=== PATIENT | male | born 1995 | race Caucasian/White ===

== ENCOUNTER → 2021-12-17 14:36 | Outpatient (CLI) | payer OTHER, SELFPAY ==
--- NOTE | 2021-12-17 14:37 | CT_ITS ---
FINAL REPORT TECHNIQUE: Axial CT images were performed through the head. Coronal reformatted images were submitted. This study was performed with techniques to keep radiation doses as low as reasonably achievable (ALARA). Individualized dose reduction techniques using automated exposure control or adjustment of mA and/or kV according to the patient's size were employed. CLINICAL HISTORY: migraines frontal lobe FINDINGS: The ventricles are normal in size. There is no evidence of hemorrhage. There is no mass or edema identified. There is no abnormal extra-axial fluid seen. There is mild mucoperiosteal thickening of the frontal sinuses and ethmoid air cells. Remaining paranasal sinuses are clear. There are no air-fluid levels. IMPRESSION: Mild mucoperiosteal thickening of the frontal sinuses and ethmoid air cells consistent with chronic sinusitis. No acute intracranial abnormality. Reviewed, Interpreted and Dictated by Guillaume Ward MD Transcribed by Ekta Wang Authenticated by Guillaume Ward MD on 12/17/2021 04:23:46 PM [facility]
== END ==
PROVIDERS: PCP Nurse Practitioner Family; Visit Provider Nurse Practitioner Family
DX: G43.909 Migraine, unspecified, not intractable, without status migrainosus (principal)
CPT/HCPCS: 70450

== ENCOUNTER 2022-08-03 15:36 | Emergency (ER) | payer OTHER, SELFPAY ==
[2022-08-03 16:09] VITALS: BP 131/87; PULSE 99; RESP 18; TEMP 37.6; O2SAT 99; BMI 27.1
--- NOTE | 2022-08-03 16:16 | EXP.UTC ---
Discharge Plan Disposition Patient Disposition: Home, Self-Care Condition: Good Prescriptions Prescriptions: New benzonatate [benzonatate] 100 mg capsule 100 mg PO TIDP PRN (Reason: Cough) Qty: 30 0RF ondansetron 4 mg Tablet,Disintegrating 4 mg PO Q8H PRN (Reason: Nausea) Qty: 20 0RF No Action ubrogepant [Ubrelvy] 100 mg tablet 0RF buspirone 5 mg tablet 5 mg PO BID Qty: 60 1RF Trintellix 20 mg tablet 20 mg PO DAILY Qty: 30 1RF Referrals Follow up/Referrals: Matt Miller APRN [Primary Care Provider] - See instructions Activity Restrictions/Add. Instructions Additional Instructions/Restrictions: Drink plenty of fluids. Take tylenol or ibuprofen for pain or fever. Take the medications as directed. Follow up with your regular doctor. GO TO THE ER FOR ANY WORSENING SYMPTOMS Quarantine until you know the results of your covid-19 test. Notify your school or workplace of your results and follow their instructions regarding return to work/school. Clinical Impressions Clinical Impression: Acute viral syndrome, Close exposure to COVID-19 virus Instructions Patient Instructions: Coronavirus Disease 2019, Preventing the Spread of Coronavirus Discharge Instructions Discharge ED Provider: Tony Espinal [facility] General Stated complaint: exposed,ARROYO Body Aches,runny nose Mode of Arrival: Ambulatory Source of Information: Patient Limitations: No Limitations Time Seen by Provider: 08/03/22 16:16 Description of Symptoms (Recalled from Triage Doc. by RN): pt comes in for covid test. symptoms began today and include headache, body aches, runny nose, chills, weakness. HEENT Symptoms (Recalled from RN notes): Yes Resp Symptoms (Recalled from RN notes): Yes Skin Symptoms (Recalled from RN notes): No MS Symptoms (Recalled from RN notes): No Functional Status (Recalled from RN notes): n/a History of Present Illness Provider Complaint: He has had body aches, malaise and a dry cough for the past 1 day. Related Data Previous Rx's Medication Instructions Recorded buspirone 5 mg tablet 5 mg PO BID #60 tabs 06/24/22 vortioxetine 20 mg tablet 20 mg PO DAILY #30 tabs 06/24/22 (Trintellix) benzonatate 100 mg capsule 100 mg PO TIDP PRN Cough #30 caps 08/03/22 ondansetron 4 mg disintegrating 4 mg PO Q8H PRN Nausea #20 tabs 08/03/22 tablet Allergies Allergy/AdvReac Type Severity Reaction Status Date / Time Sulfa (Sulfonamide Allergy Verified 08/03/22 16:14 Antibiotics) Worker's Comp Is this a Worker's Comp case?: No PFSH PFSH Social History Smoking Status: Current every day smoker tobacco type: cigarettes packs per day: 1 alcohol intake: never substance use type: marijuana current occupational status: unemployed Travel in the last 8 weeks: None number of children: 0 ROS Obtained: Yes All systems reviewed & no additional complaints except as documented Constitutional Constitutional: Reports system reviewed and no additional complaints, except as documented, Denies chills and Denies fever(s) Eyes Eyes: Denies eye discharge ENT Ears, Nose, Mouth, and Throat: Denies dysphagia, Denies sore throat and Denies throat swelling Cardiovascular Cardiovascular: Denies chest pain and Denies dyspnea Respiratory Respiratory: Denies chest congestion, Denies cough and Denies dyspnea Gastrointestinal Gastrointestingal: Denies abdominal pain, constipation, diarrhea, dysphagia, nausea or vomiting Musculoskeletal Musculoskeletal: Denies arthralgias Integumentary/Breasts Skin/Breast: Denies rash Neurologic Neurologic: Denies paresthesias Allergic/Immunologic Allergic/Immunologic: Denies throat swelling Physical Exam General General appearance: alert and in no apparent distress Head Head exam: atraumatic, normocephalic and normal inspection Eye Eye exam: Present normal appearance, PERRL and EOMI ENT ENT exam: Prese
[2022-08-03 16:40] LABS: UTC Strep Screen (Rapid) Negative (Negative)
[2022-08-03 16:56] VITALS: BP 131/87; PULSE 99; RESP 18; TEMP 37.6
== END 2022-08-03 17:02 | disposition home or self-care (01) ==
PROVIDERS: Emergency Provider Nurse Practitioner Family; PCP Nurse Practitioner Family
DX: U07.1 COVID-19 (principal)
CPT/HCPCS: 87880; 99212; C9803; G0463; U0003; U0005

== ENCOUNTER 2023-07-22 09:34 | Emergency (ER) | payer OTHER, SELFPAY ==
[2023-07-22 10:10] VITALS: BP 147/84; PULSE 64; RESP 18; TEMP 37.3; O2SAT 96; BMI 29.8
--- NOTE | 2023-07-22 10:50 | EXP.UTC ---
Discharge Plan Disposition Patient Disposition: Home, Self-Care Condition: Good Prescriptions Prescriptions: No Action ubrogepant [Ubrelvy] 100 mg tablet 0RF buspirone 5 mg tablet 5 mg PO BID Qty: 60 1RF Trintellix 20 mg tablet 20 mg PO DAILY Qty: 30 1RF benzonatate [benzonatate] 100 mg capsule 100 mg PO TIDP PRN (Reason: Cough) Qty: 30 0RF ondansetron 4 mg Tablet,Disintegrating 4 mg PO Q8H PRN (Reason: Nausea) Qty: 20 0RF Referrals Follow up/Referrals: Matt Miller APRN [Primary Care Provider] - See instructions Activity Restrictions/Add. Instructions Additional Instructions/Restrictions: *Monitor Temp, Over the counter Motrin or Tylenol as directed/as needed Tylenol every 4 hours and Motrin every 6 hours (as long as your family doctor has told you that you can take it) for fever or pain. and straight to ER if unable to lower temp less than 101.0 after medication given *Warm salt water gargles may help to soothe the throat *Throat Lozenges? *Warm fluids like tea with honey may help to soothe the throat? *Sleep elevated *Humidifier/Vaporizer Follow up IMMEDIATELY for new or worsening symptoms or no Noticeable improvement over the next 48-72 hours. 911 for difficulty breathing or swallowing You were tested for today for COVID19 your test result should be back in the next 24-48 hours, you may check your results on the [facility] [employer] [facility] Clinical Impressions Clinical Impression: Acute viral syndrome Stand Alone Forms Stand Alone Forms: Work/School Release Instructions Patient Instructions: Sore Throat, DI for Fever (Symptom) -- Adult, DI for Nasal Congestion Discharge ED Provider: Nyasia Webber [facility] – [place] HPI General Stated complaint: runny nose, cough, chills,headache Mode of Arrival: Ambulatory Source of Information: Patient Limitations: No Limitations Time Seen by Provider: 07/22/23 10:50 Description of Symptoms (Recalled from Triage Doc. by RN): PATIENT C/O HEADACHE, BODY ACHES, RUNNY NOSE AND COUGH SINCE LAST NIGHT HEENT Symptoms (Recalled from RN notes): Yes Resp Symptoms (Recalled from RN notes): Yes Skin Symptoms (Recalled from RN notes): No MS Symptoms (Recalled from RN notes): No Functional Status (Recalled from RN notes): WNL History of Present Illness Provider Complaint: Patient states that he started feeling bad last night having cough, body aches, chills and headache State that he feels like he did before when he had COVID and wanted to get tested Related Data Previous Rx's Medication Instructions Recorded benzonatate 100 mg capsule 100 mg PO TIDP PRN Cough #30 caps 08/03/22 ondansetron 4 mg disintegrating 4 mg PO Q8H PRN Nausea #20 tabs 08/03/22 tablet buspirone 5 mg tablet 5 mg PO BID #60 tabs 07/08/23 vortioxetine 20 mg tablet 20 mg PO DAILY #30 tabs 07/08/23 (Trintellix) Allergies Allergy/AdvReac Type Severity Reaction Status Date / Time Sulfa (Sulfonamide Allergy Verified 02/06/23 11:29 Antibiotics) Worker's Comp Is this a Worker's Comp case?: No [facility] Disclaimer: The information contained in this section may have been updated after the patient was seen, as this information can be updated by other users. Medical History (Updated 07/22/23 @ 10:56 by Nyasia Webber APRN) Generalized anxiety disorder Social phobia Social History Smoking Status: Current every day smoker tobacco type: cigarettes packs per day: 1 alcohol intake: never substance use type: marijuana current occupational status: unemployed Travel in the last 8 weeks: None number of children: 0 ROS Obtained: Yes All systems reviewed & no additional complaints except as documented and Yes Systems reviewed as appropriate & no additional complaints except as documented Constitutional Constitutional: Reports system reviewed and no additional complaints, exce
[2023-07-22 10:57] VITALS: BP 147/84; PULSE 64; RESP 18; TEMP 37.3; O2SAT 96
== END 2023-07-22 11:08 | disposition home or self-care (01) ==
PROVIDERS: Emergency Provider Nurse Practitioner; PCP Nurse Practitioner Family
DX: R51.9 Headache, unspecified (principal); R05.9 Cough, unspecified; B34.9 Viral infection, unspecified; F17.210 Nicotine dependence, cigarettes, uncomplicated; F41.1 Generalized anxiety disorder; F40.10 Social phobia, unspecified
CPT/HCPCS: 99212; 99213; G0463

== ENCOUNTER 2023-09-02 08:41 | Emergency (ER) | payer BC, OTHER, SELFPAY ==
--- NOTE | 2023-09-02 08:46 | XR_ITS ---
FINAL REPORT CLINICAL HISTORY: twisted ankle x 2 days ago. Lateral sided pain FINDINGS: LEFT ANKLE: Three views of the left ankle were obtained. There is no acute fracture or dislocation. The joint spaces and mortise are intact. There is lateral soft tissue swelling. IMPRESSION: Swelling with no acute bony abnormality. Reviewed, Interpreted and Dictated by Melvin Rahman III, MD Transcribed by Jadon Reyna Authenticated and [facility]
[2023-09-02 08:50] VITALS: BP 144/87; PULSE 54; RESP 18; TEMP 36.8; O2SAT 98; BMI 28.3
--- NOTE | 2023-09-02 08:57 | EXP.UTC ---
Discharge Plan Disposition Patient Disposition: Home, Self-Care Condition: Good Prescriptions Prescriptions: No Action buspirone 5 mg tablet 5 mg PO BID Trintellix 20 mg tablet 20 mg PO DAILY Referrals Follow up/Referrals: Matt Miller APRN [Primary Care Provider] - See instructions Activity Restrictions/Add. Instructions Additional Instructions/Restrictions: *weight bearing as tolerated *RICE, Rest the extremity, Ice 15-20 minutes 3-4 times daily, Compress- wear the felix wrap as discussed as much as possible to help reduce swelling and pain, Elevate the extremity when at rest *Felix wrap is for support and help control swelling, use it except in the shower. Be sure that is not to tight but not to loose either *Elevate when resting? *Ibuprofen 600-800mg every 6-8 hours as needed for pain an inflammation. If need something more can take Tylenol in between doses of Ibuprofen to help Immediately follow up with your family doctor for new or worsening of symptoms, or no noticeable improvement over the next 3-5 days Clinical Impressions Clinical Impression: Ankle sprain Qualifiers: Encounter type: initial encounter Involved ligament of ankle: unspecified ligament Laterality: left Qualified Code(s): S93.402A - Sprain of unspecified ligament of left ankle, initial encounter Stand Alone Forms Stand Alone Forms: Work/School Release Instructions Patient Instructions: Ankle Sprain, DI for Ankle Sprain, How To Perform RICE (Rest, Ice, Compress, Elevate) Discharge ED Provider: Nyasia Webber [facility] [place] General Stated complaint: [id number], Lt ankle pain Mode of Arrival: Ambulatory Source of Information: Patient Limitations: No Limitations Time Seen by Provider: 09/02/23 08:57 Description of Symptoms (Recalled from Triage Doc. by RN): PATIENT STATES HE STEPPED IN A HOLE AND TWISTED HIS LEFT ANKLE ON 08/31. C/O PAIN TO LEFT ANKLE AND BOTTOM OF LEFT FOOT HEENT Symptoms (Recalled from RN notes): No Resp Symptoms (Recalled from RN notes): No Skin Symptoms (Recalled from RN notes): No MS Symptoms (Recalled from RN notes): Yes Functional Status (Recalled from RN notes): WNL History of Present Illness Provider Complaint: Patient states that on the he stepped in a hole and twisted his left ankle States that he has been keeping it wrapped but has been having pain and bruising ever since States that he worked on it last night and this morning the pain was worse so he came in to get it checked out Related Data Home Medications Medication Instructions Recorded Confirmed buspirone 5 mg tablet 5 mg PO BID Anxiety 09/02/23 09/02/23 vortioxetine 20 mg tablet 20 mg PO DAILY Depression 09/02/23 09/02/23 (Trintellix) Allergies Allergy/AdvReac Type Severity Reaction Status Date / Time Sulfa (Sulfonamide Allergy Verified 08/20/23 16:16 Antibiotics) Worker's Comp Is this a Worker's Comp case?: No [facility] Disclaimer: The information contained in this section may have been updated after the patient was seen, as this information can be updated by other users. Medical History (Updated 09/02/23 @ 10:14 by Nyasia Webber APRN) Generalized anxiety disorder Social phobia Social History Smoking Status: Current every day smoker tobacco type: cigarettes packs per day: 1 alcohol intake: never substance use type: marijuana current occupational status: unemployed Travel in the last 8 weeks: None number of children: 0 ROS Obtained: Yes All systems reviewed & no additional complaints except as documented and Yes Systems reviewed as appropriate & no additional complaints except as documented Constitutional Constitutional: Reports system reviewed and no additional complaints, except as documented and Reports as per HPI ENT Ears, Nose, Mouth, and Throat: Reports system reviewed and no additional complaints, except as documented and Repo
[2023-09-02 10:08] VITALS: BP 144/87; PULSE 54; RESP 18; TEMP 36.8; O2SAT 98
== END 2023-09-02 10:19 | disposition home or self-care (01) ==
PROVIDERS: Emergency Provider Nurse Practitioner; PCP Nurse Practitioner Family
DX: S93.402A Sprain of unspecified ligament of left ankle, initial encounter (principal); F17.210 Nicotine dependence, cigarettes, uncomplicated; F41.1 Generalized anxiety disorder; F40.10 Social phobia, unspecified; W17.2XXA Fall into hole, initial encounter
CPT/HCPCS: 73610; 99212; 99214; G0463